=== PATIENT | female | born 1960 | race Caucasian/White ===

== ENCOUNTER 2016-06-09 10:11 | Observation (INO) | payer OTHER ==
[~2016-06-09] VITALS: Ht 170.2 cm; Wt 111.1 kg
[~2016-06-09 10:11] MED LIST: AMBIZINE25 MG PO; BUPROBAN150 MG PO; FLUOXETINE HCL20 MG PO; GABAPENTIN800 MG PO; HYDROCODON-ACE1 EAC8 PO; LANTUS 10100 UNITS/ SC; LISINOPRIL20 MG PO; METFORMIN HCL1000 MG PO; ONDANSETRON ODT4 MG PO; PRAVASTATIN SOD40 MG PO; VICTOZA0.6 MG/0.1 SC; ZOFRAN4 MG PO
[2016-06-09 11:14] LABS: HEMATOCRIT 40.2 % (36.0-46.0); MCH 30.5 PG (29.0-34.0); MCHC 34.3 G/DL (30.0-36.0); MCV 88.7 FL (83-99); MEAN PLAT.VOLUME 10.2 uM^3 (9.5-12.4); PLATELET COUNT 185 K/uL (156-360); RBC DIS.WIDTH-CV 12.9 % (11.8-14.6); RED BLOOD COUNT 4.53 M/uL (3.80-5.20); WHITE BLOOD COUNT 6.7 K/uL (4.1-10.2)
[2016-06-09 11:23] LABS: CHLORIDE 112 mEq/L (99-109); POTASSIUM 4.9 mEq/L (3.7-5.4)
[2016-06-09 11:24] LABS: SODIUM 141 mEq/L (136-147)
[2016-06-09 11:26] LABS: GLUCOSE 187 mg/dL (70-99)
[2016-06-09 11:27] LABS: ANION GAP 9 MEQ/L (2-14)
[2016-06-09 11:28] LABS: TOTAL BILIRUBIN 0.5 mg/dL (0.0-1.0)
[2016-06-09 11:29] LABS: ALKALINE PHOSPHATASE 87 IU/L (3-129)
[2016-06-09 11:30] LABS: GFR ESTIMATE (CALCULATED) 42 mL/min/
[2016-06-09 11:31] LABS: DIRECT BILIRUBIN 0.2 mg/dL (0.0-0.3); UREA NITROGEN (BUN) 25 mg/dL (9-23)
[2016-06-09 11:38] LABS: TROP-I INTERPRETATION NEGATIVE; TROPONIN-I < 0.01 ng/mL (0.0-0.30)
[2016-06-09] MEDS ORDERED: LEVO-T112 MCG PO (13:43)
[2016-06-09] MEDS ORDERED: OMEPRAZOLE40 M1 PO (13:43)
[2016-06-09 14:20] VITALS: BP 193/83
[2016-06-09] MEDS ORDERED: LANTUS 10100 UNITS/ SC (15:11)
[2016-06-09 17:56] LABS: POINT-OF-CARE METER ID UU14162513
[2016-06-09 19:45] VITALS: BP 161/63
[2016-06-09 22:25] LABS: POINT-OF-CARE METER ID UU14162513
[2016-06-10 00:07] VITALS: BP 131/60
[2016-06-10 01:02] LABS: TROP-I INTERPRETATION NEGATIVE; TROPONIN-I < 0.01 ng/mL (0.0-0.30)
[2016-06-10 04:00] VITALS: BP 149/70
[2016-06-10 06:41] LABS: ANION GAP 5 MEQ/L (2-14); CHLORIDE 114 MEQ/L (99-109); GFR ESTIMATE (CALCULATED) 50 mL/min/; GLUCOSE 72 mg/dL (70-99); POTASSIUM 4.5 MEQ/L (3.7-5.4); SAMPLE HEMOLYSIS CHECK 0; SAMPLE ICTERIC CHECK 0; SAMPLE LIPEMIA CHECK 0; SODIUM 142 MEQ/L (136-147); UREA NITROGEN (BUN) 21 mg/dL (9-23)
[2016-06-10 08:37] LABS: TROP-I INTERPRETATION NEGATIVE; TROPONIN-I < 0.01 ng/mL (0.0-0.30)
[2016-06-10 08:54] LABS: POINT-OF-CARE METER ID UU13113700
[2016-06-10 10:50] LABS: POINT-OF-CARE METER ID UU13113700
[2016-06-10] MEDS ORDERED: ANTIVERT25 MG PO (11:42)
[2016-06-10 12:37] LABS: POINT-OF-CARE METER ID UU13113700
[2016-06-10] MEDS ORDERED: ERGOCALCIF50000 UNIT PO (12:55)
[2016-06-10] MEDS ORDERED: LISINOPRIL20 MG PO ×2 (16:12→16:17)
== END 2016-06-10 14:25 | disposition home or self-care (01) ==
LOC: EME 10:11 → 5WEST 12:42 → EDOF 12:42 → 5WEST 13:47
PROVIDERS: Internal Medicine
DX: R42 Dizziness and giddiness (principal); I10 Essential (primary) hypertension; R55 Syncope and collapse; R00.1 Bradycardia, unspecified; I45.2 Bifascicular block; E66.9 Obesity, unspecified; R06.02 Shortness of breath; Z79.4 Long term (current) use of insulin; Z82.3 Family history of stroke; Z80.0 Family history of malignant neoplasm of digestive organs; Z82.49 Family history of ischemic heart disease and other diseases of the circulatory system
CPT/HCPCS: 70450; 71020; 80048; 80076; 82948; 84484; 85027; 93005; 93880; 99281; 99284; G0378; J0360; J1644; J1815; J7030; S0028

== ENCOUNTER 2017-09-24 12:45 | Inpatient (IN) | payer OTHER ==
[~2017-09-24] VITALS: Ht 170.2 cm; Wt 120.5 kg
[~2017-09-24 12:45] MED LIST changes: +ANTIVERT25 MG PO; -BUPROBAN150 MG PO; +ERGOCALCIF50000 UNIT PO; -FLUOXETINE HCL20 MG PO; +LEVO-T112 MCG PO; +OMEPRAZOLE40 M1 PO; +PROZAC40 MG PO; +WELLBUTRIN SR150 MG PO
[2017-09-24 13:41] LABS: HEMATOCRIT 43.1 % (36.0-46.0); HEMOGLOBIN 15.2 G/DL (11.9-15.5); MCH 31.4 PG (29.0-34.0); MCHC 35.3 G/DL (30.0-36.0); PLATELET COUNT 226 K/uL (156-360); RBC DIS.WIDTH-CV 13.2 % (11.8-14.6); RED BLOOD COUNT 4.84 M/uL (3.80-5.20); WHITE BLOOD COUNT 12.5 K/uL (4.1-10.2)
[2017-09-24 13:51] LABS: CHLORIDE 113 mEq/L (99-109); POTASSIUM 4.8 mEq/L (3.7-5.4); SODIUM 141 mEq/L (136-147)
[2017-09-24 13:53] LABS: GLUCOSE 164 mg/dL (70-99)
[2017-09-24 13:57] LABS: CREATININE 1.3 mg/dL (0.6-1.3); GFR ESTIMATE (CALCULATED) 45 mL/min/
[2017-09-24 13:58] LABS: UREA NITROGEN (BUN) 27 mg/dL (9-23)
[2017-09-24 14:02] LABS: TROP-I INTERPRETATION POSITIVE
[2017-09-24 14:06] LABS: TROPONIN-I 1.04 ng/mL (0.0-0.30)
[2017-09-24 15:06] LABS: INTER. NORMALIZED RATIO 1.1
[2017-09-24 15:08] LABS: PTT 27.4 SEC (25-37)
[2017-09-24] MEDS ORDERED: BASAGLAR K100 UNIT/1 SC (15:14)
[2017-09-24] MEDS ORDERED: TEMOVATE 0.05%30 GM TP (15:15)
[2017-09-24] MEDS ORDERED: NORCO 7.5/321 TABLET PO (15:16)
[2017-09-24 17:27] LABS: APPEARANCE SL.HAZY ((CLEAR)); BILIRUBIN NEGATIVE; BLOOD NEGATIVE; COLOR STRAW ((YELLOW)); GLUCOSE (STRIP) NEGATIVE; KETONES NEGATIVE; LEUKOCYTES NEGATIVE; NITRITE NEGATIVE; PROTEIN (STRIP) 100; SPECIFIC GRAVITY 1.005 (1.000-1.030); UROBILINOGEN 0.2 MG/DL (0.2-1.0)
[2017-09-24 17:28] VITALS: BP 169/94
[2017-09-24 17:40] LABS: BACTERIA RARE /HPF; EPITHELIAL CELLS 1+ /HPF; MUCUS TRACE /LPF; RED BLOOD CELLS 0-5 /HPF (0-5); WHITE BLOOD CELLS 0-5 /HPF (0-5)
[2017-09-24 18:37] LABS: TROP-I INTERPRETATION POSITIVE; TROPONIN-I 0.95 ng/mL (0.0-0.30)
[2017-09-24 19:54] VITALS: BP 157/74
[2017-09-24 21:49] LABS: INTER. NORMALIZED RATIO 1.1
[2017-09-24 21:53] LABS: PTT 91.2 SEC (25-37)
[2017-09-24 23:46] VITALS: BP 133/79
[2017-09-25 03:29] VITALS: BP 156/82
[2017-09-25 03:50] LABS: HEMATOCRIT 44.7 % (36.0-46.0); HEMOGLOBIN 15.5 G/DL (11.9-15.5); MCH 31.3 PG (29.0-34.0); MCHC 34.7 G/DL (30.0-36.0); MCV 90.3 FL (83-99); PLATELET COUNT 230 K/uL (156-360); RBC DIS.WIDTH-CV 13.4 % (11.8-14.6); RBC DIS.WIDTH-SD 44.4 % (39-53); RED BLOOD COUNT 4.95 M/uL (3.80-5.20); WHITE BLOOD COUNT 11.2 K/uL (4.1-10.2)
[2017-09-25 04:10] LABS: CHLORIDE 112 mEq/L (99-109); POTASSIUM 4.4 mEq/L (3.7-5.4); SODIUM 143 mEq/L (136-147)
[2017-09-25 04:12] LABS: GLUCOSE 55 mg/dL (70-99)
[2017-09-25 04:14] LABS: TROP-I INTERPRETATION INDETERMINATE; TROPONIN-I 0.44 ng/mL (0.0-0.30)
[2017-09-25 04:15] LABS: CREATININE 1.4 mg/dL (0.6-1.3); GFR ESTIMATE (CALCULATED) 41 mL/min/
[2017-09-25 04:16] LABS: UREA NITROGEN (BUN) 28 mg/dL (9-23)
[2017-09-25 09:02] LABS: HDL CHOLESTEROL 47 MG/DL (Desirable>=50); LDL CHOLESTEROL 108 mg/dL (Desirable<100); NON-HDL CHOLESTEROL 143 mg/dL (Desirable<160); TOTAL CHOLESTEROL 190 mg/dL (Desirable<200); TRIGLYCERIDES 173 MG/DL (Normal: <150)
[2017-09-25 09:09] VITALS: BP 165/85
[2017-09-25 09:47] LABS: HEMOGLOBIN A1c (GLYCOHEMOGLOB) 9.5 % (Below 5.7)
[2017-09-25 14:18] VITALS: BP 166/90
[2017-09-25 16:35] VITALS: BP 148/73
[2017-09-25 19:13] VITALS: BP 132/64
[2017-09-25 23:56] VITALS: BP 130/66
[2017-09-26 03:30] VITALS: BP 128/60
[2017-09-26 06:09] LABS: CHLORIDE 110 MEQ/L (99-109); CREATININE 1.5 MG/DL (0.6-1.3); GFR ESTIMATE (CALCULATED) 38 mL/min/; POTASSIUM 4.7 MEQ/L (3.7-5.4); SODIUM 139 MEQ/L (136-147); UREA NITROGEN (BUN) 31 mg/dL (9-23)
[2017-09-26 06:23] LABS: GLUCOSE 215 mg/dL (70-99)
[2017-09-26 06:25] LABS: HEMATOCRIT 38.1 % (36.0-46.0); MCH 30.8 PG (29.0-34.0); MCHC 33.3 G/DL (30.0-36.0); MCV 92.5 FL (83-99); PLATELET COUNT 190 K/uL (156-360); RBC DIS.WIDTH-CV 13.4 % (11.8-14.6); RBC DIS.WIDTH-SD 45.8 % (39-53); RED BLOOD COUNT 4.12 M/uL (3.80-5.20); WHITE BLOOD COUNT 8.4 K/uL (4.1-10.2)
[2017-09-26 06:27] LABS: HEMOGLOBIN 12.7 G/DL (11.9-15.5)
[2017-09-26 09:00] VITALS: BP 132/59
[2017-09-26 12:00] VITALS: BP 144/81
[2017-09-26 16:00] VITALS: BP 169/92
[2017-09-26 16:18] LABS: CHLORIDE 108 MEQ/L (99-109); CREATININE 1.4 MG/DL (0.6-1.3); GFR ESTIMATE (CALCULATED) 41 mL/min/; GLUCOSE 164 mg/dL (70-99); POTASSIUM 4.7 MEQ/L (3.7-5.4); SODIUM 139 MEQ/L (136-147); UREA NITROGEN (BUN) 28 mg/dL (9-23)
[2017-09-26] MEDS ORDERED: CARVEDILOL3.125 MG PO (16:23)
[2017-09-26] MEDS ORDERED: LISINOPRIL20 MG PO (16:23)
[2017-09-26] MEDS ORDERED: AMLODIPINE BESY10 MG PO (16:23)
== END 2017-09-26 17:15 | disposition home or self-care (01) | DRG 280 ==
LOC: EME 12:45 → EDOF 14:50 → 4EAST 14:50 → ENRESERV 14:52 → 4EAST 16:58
PROVIDERS: Emergency Medicine; Internal Medicine
DX: I21.4 Non-ST elevation (NSTEMI) myocardial infarction (principal); I50.21 Acute systolic (congestive) heart failure; I16.1 Hypertensive emergency; F41.9 Anxiety disorder, unspecified; F32.9 Major depressive disorder, single episode, unspecified; I45.2 Bifascicular block; E11.649 Type 2 diabetes mellitus with hypoglycemia without coma; E66.9 Obesity, unspecified; E78.5 Hyperlipidemia, unspecified; I11.0 Hypertensive heart disease with heart failure; E03.9 Hypothyroidism, unspecified; I25.10 Atherosclerotic heart disease of native coronary artery without angina pectoris; Z79.4 Long term (current) use of insulin; Z80.0 Family history of malignant neoplasm of digestive organs
CPT/HCPCS: 71046; 80048; 80048 91; 80061; 81003; 82948; 83036; 83880; 84484; 85027; 85347; 85610; 85730; 93005; 93306; 99281; 99285; C1769; C1887; J1644; J1815; J1940; J2250; J3010; J7040; J7120

== ENCOUNTER 2017-11-20 11:01 | Emergency (ER) | payer OTHER ==
[~2017-11-20] VITALS: Ht 170.2 cm; Wt 110.4 kg
[~2017-11-20 11:01] MED LIST changes: +AMLODIPINE BESY10 MG PO; +BASAGLAR K100 UNIT/1 SC; +CARVEDILOL3.125 MG PO; +NORCO 7.5/321 TABLET PO; +TEMOVATE 0.05%30 GM TP
[2017-11-20 13:44] LABS: BASOPHIL (%) 0.6 % (0-1); BASOPHIL COUNT 0.1 K/uL (0-0.1); EOSINOPHIL (%) 3.8 % (0-5); EOSINOPHIL COUNT 0.3 K/uL (0-0.3); HEMATOCRIT 38.7 % (36.0-46.0); HEMOGLOBIN 13.1 G/DL (11.9-15.5); IMMATURE GRANULOCYTE (%) 0.4 % (0.0-0.7); LYMPHOCYTE (%) 9.5 % (15-42); LYMPHOCYTE COUNT 0.7 K/uL (1.0-2.8); MCH 31.3 PG (29.0-34.0); MCHC 33.9 G/DL (30.0-36.0); MCV 92.4 FL (83-99); MONOCYTE (%) 10.4 % (3-12); MONOCYTE COUNT 0.8 K/uL (0-0.8); NEUTROPHIL (%) 75.3 % (45-76); NEUTROPHIL COUNT 5.9 K/uL (1.8-6.4); PLATELET COUNT 201 K/uL (156-360); RBC DIS.WIDTH-CV 12.9 % (11.8-14.6); RBC DIS.WIDTH-SD 43.1 % (39-53); RED BLOOD COUNT 4.19 M/uL (3.80-5.20); WHITE BLOOD COUNT 7.8 K/uL (4.1-10.2)
[2017-11-20 13:53] LABS: ALBUMIN 3.8 g/dL (3.2-4.8); CHLORIDE 112 mEq/L (99-109); SODIUM 141 mEq/L (136-147)
[2017-11-20 13:55] LABS: GLUCOSE 161 mg/dL (70-99); TOTAL PROTEIN 6.7 g/dL (6.4-8.3)
[2017-11-20 13:57] LABS: TOTAL BILIRUBIN 0.2 mg/dL (0.0-1.0)
[2017-11-20 13:59] LABS: ALKALINE PHOSPHATASE 86 IU/L (3-129); CREATININE 1.4 mg/dL (0.6-1.3); GFR ESTIMATE (CALCULATED) 41 mL/min/
[2017-11-20 14:00] LABS: UREA NITROGEN (BUN) 46 mg/dL (9-23)
[2017-11-20 14:01] LABS: AST (GOT) 19 IU/L (2-34); DIRECT BILIRUBIN 0.1 mg/dL (0.0-0.3)
[2017-11-20 14:02] LABS: ALT (GPT) 15 IU/L (3-49)
[2017-11-20 14:09] LABS: POTASSIUM 6.2 mEq/L (3.7-5.4)
[2017-11-20 16:33] LABS: CHLORIDE 110 mEq/L (99-109); POTASSIUM 5.7 mEq/L (3.7-5.4); SODIUM 142 mEq/L (136-147)
[2017-11-20 16:38] LABS: CREATININE 1.3 mg/dL (0.6-1.3); GFR ESTIMATE (CALCULATED) 45 mL/min/
[2017-11-20 16:39] LABS: UREA NITROGEN (BUN) 43 mg/dL (9-23)
[2017-11-20 16:46] LABS: GLUCOSE 118 mg/dL (70-99)
[2017-11-20 17:59] VITALS: BP 185/80
== END 2017-11-20 18:03 | disposition home or self-care (01) ==
LOC: EME 11:01
PROVIDERS: Emergency Medicine
DX: M25.561 Pain in right knee (principal); R60.0 Localized edema; I11.0 Hypertensive heart disease with heart failure; I50.9 Heart failure, unspecified; K21.9 Gastro-esophageal reflux disease without esophagitis; E11.9 Type 2 diabetes mellitus without complications; F32.9 Major depressive disorder, single episode, unspecified; F41.9 Anxiety disorder, unspecified
CPT/HCPCS: 73564; 80048; 80048 91; 80076; 83605; 85025; 93971; 99281; 99285; J1940; J7030